=== PATIENT | female | born 1945 | race Caucasian/White ===

== ENCOUNTER 2017-04-15 12:00 | Inpatient (IN) | payer MEDICARE ==
[2017-04-15 12:43] VITALS: BMI 22.8
[2017-04-21] MEDS ORDERED: Sodium Chloride 0.9% 10 ML ONE (10:55)
[2017-04-21] MEDS ORDERED: Fentanyl 100 MCG/2 ML VIAL ONE ×2 (11:47→14:04)
[2017-04-21] MEDS ORDERED: ePHEDrine/0.9% NaCl/PF SYRINGE 50 mg/10 ml ONE (12:15)
[2017-04-21] MEDS ORDERED: Lidocaine 1% PF 5 ML VIAL ONE (12:15)
[2017-04-21] MEDS ORDERED: Ondansetron HCl/PF 4 MG/2 ML Vial ONE (12:15)
[2017-04-21] MEDS ORDERED: Dexamethasone 20 MG/5 ML VIAL ONE (12:15)
[2017-04-21] MEDS ORDERED: Glycopyrrolate 0.2 MG/ML 5 ML SYRINGE ONE (12:15)
[2017-04-21] MEDS ORDERED: Propofol 200 MG/20 ML VIAL ONE (12:15)
[2017-04-21] MEDS ORDERED: Promethazine HCl 25 MG/ML VIAL ONE (14:42)
[2017-04-21] MEDS ORDERED: Promethazine HCl 12.5 MG SUPP PR PRN (16:57)
[2017-04-21] MEDS ORDERED: Milk Of Magnesia 30 ML UDCUP PO PRN (16:57)
[2017-04-21] MEDS ORDERED: Promethazine HCl 25 MG/ML VIAL IM PRN (16:57)
[2017-04-21] MEDS ORDERED: tiZANidine HCl 4 MG TAB PO PRN (16:57)
[2017-04-21] MEDS ORDERED: Ondansetron HCl/PF 4 MG/2 ML Vial IM PRN (16:57)
[2017-04-21] MEDS ORDERED: diphenhydrAMINE HCl 25 MG CAP PO PRN (16:57)
[2017-04-21] MEDS ORDERED: diphenhydrAMINE HCl 50 MG/ML 1 ML VIAL IVP PRN (16:57)
[2017-04-21] MEDS ORDERED: Mag-Al 1200 mg/1200 mg/30 ML UDCUP PO PRN (16:57)
[2017-04-21] MEDS ORDERED: Zolpidem Tartrate 5 MG TAB PO PRN (16:57)
[2017-04-21] MEDS ORDERED: Morphine Sulfate 2 MG/ML SYRINGE SLOW IVP PRN (16:57)
[2017-04-21] MEDS ORDERED: Polyethylene Glycol 3350 17 GM Packet PO PRN (17:01)
[2017-04-21] MEDS ORDERED: traMADol HCl 50 MG TAB PO PRN (17:02)
[2017-04-21] MEDS: Sodium Chloride 0.9% 1,000 ML IV SCH (17:35)
[2017-04-21] MEDS: HYDROcodone/Acetaminophen 10/325 mg Tablet PO PRN (17:37)
[2017-04-21] MEDS: Ketorolac Tromethamine 30 MG/ML VIAL IVP SCH (17:37)
--- NOTE | 2017-04-21 19:12 | OP ---
DATE OF PROCEDURE: 04/21/2017 SURGEON: Andrew Forrester M.D. PROCESSING REP: Delfin Orourke PA-C PROCEDURE: L3-4 and L4-L5 laminectomy, facetectomy, foraminotomy, interbody arthrodesis, local mors elized autograft, demineralized bone matrix, posterior lateral arthrodesis and pedicle screw instrum entation, L3-L5. PROCEDURE IN DETAIL: The patient was brought into the operating room and intubated. She was rolled in the prone position on gel-filled chest rolls. An incision was made exposing the L3 through L5 b ilaterally and our level was confirmed by x-ray. We performed a right L4-L5 and right L3-L4 laminec mahesh, facetectomy, and foraminotomy, completely decompressing the right L3 and right L4 nerve roots in the neural foramina and the lateral recesses of right L3-4 and right L4-5. Next, the disk space was explored and debrided and the bony endplates decorticated for the purpose of arthrodesis. I did not elect to place an interbody devices. There was a very narrow corridor in this foramina. Next, pedicle screws were placed at right L3, right L4 and right L5 using lateral fluoroscopic guidance a nd secured by rods, connected by nuts, which were final tightened. The wound was then extensively i rrigated, immaculate hemostasis was secured. A combination of demineralized bone matrix and local m orselized autograft was laid over the left laminar and posterolateral surfaces for the purpose of ar throdesis. Vancomycin powder was applied and the wound was closed in anatomic layers.
[2017-04-21] MEDS: Carvedilol 25 MG TAB PO SCH (20:44)
[2017-04-21] MEDS: Methocarbamol 500 MG TAB PO SCH (20:45)
[2017-04-21] MEDS: Temazepam 15 MG CAP PO SCH (20:46)
[2017-04-22] MEDS: Ketorolac Tromethamine 30 MG/ML VIAL IVP SCH ×5 (00:16→23:43)
[2017-04-22] MEDS: Levothyroxine Sodium 112 MCG TAB PO SCH (05:23)
[2017-04-22] MEDS: HYDROcodone/Acetaminophen 10/325 mg Tablet PO PRN ×4 (05:28→20:47)
[2017-04-22] MEDS: Sodium Chloride 0.9% 1,000 ML IV SCH ×2 (06:38→20:07)
[2017-04-22] MEDS: Carvedilol 25 MG TAB PO SCH ×2 (08:17→20:46)
[2017-04-22] MEDS: Methocarbamol 500 MG TAB PO SCH (20:45)
[2017-04-22] MEDS: Temazepam 15 MG CAP PO SCH (20:46)
[2017-04-23] MEDS: HYDROcodone/Acetaminophen 10/325 mg Tablet PO PRN ×2 (02:33→08:01)
[2017-04-23] MEDS: Levothyroxine Sodium 112 MCG TAB PO SCH (05:37)
[2017-04-23] MEDS: Ketorolac Tromethamine 30 MG/ML VIAL IVP SCH (05:39)
[2017-04-23] MEDS: Carvedilol 25 MG TAB PO SCH (09:05)
[2017-04-23 10:43] VITALS: BP 120/62; TEMP 98.2
== END 2017-04-23 10:17 | disposition home or self-care (01) | DRG 460 ==
LOC: SURG A 04-21 10:11
PROVIDERS: ADMIT Neurological Surgery; ATTEND Neurological Surgery
PROC: 0SG1071 Fusion of 2 or more Lumbar Vertebral Joints with Autologous Tissue Substitute, Posterior Approach, Posterior Column, Open Approach (ICD-10-PCS; principal; 2017-04-21)
PROC: 01NB0ZZ Release Lumbar Nerve, Open Approach (ICD-10-PCS; 2017-04-21)
DX: M48.06 Spinal stenosis, lumbar region (principal); M51.16 Intervertebral disc disorders with radiculopathy, lumbar region; M21.371 Foot drop, right foot; Z88.5 Allergy status to narcotic agent; Z85.048 Personal history of other malignant neoplasm of rectum, rectosigmoid junction, and anus; M43.16 Spondylolisthesis, lumbar region; Z90.722 Acquired absence of ovaries, bilateral; Z90.710 Acquired absence of both cervix and uterus; Z66 Do not resuscitate
CPT/HCPCS: 76001; A4216; C1713; C1768; G8978-GP-CJ; G8979-GP-CI; J1100; J1170; J1885; J2001; J2405; J2550; J2704; J3010; J3370; J3490

== ENCOUNTER 2017-05-06 10:52 | Outpatient (CLI) | payer MEDICARE ==
--- NOTE | 2017-05-06 12:20 | RAD ---
TWO VIEWS LUMBAR SPINE: INDICATION: History of surgery 1 week ago. FINDINGS: There pedicle screws seen on the right at L3 through L5 with interconnecting rods. Instrumentation projects in the expected position. There is grade I anterolisthesis of L3 and L4 and L4 and L5 and appears stable to a comparison MRI dated 03/16/17. Moderate multilevel spondylosis is again noted. There is diffuse osteopenia. IMPRESSION: Postoperative lumbar spine. POS: [facility]
== END 2017-05-06 10:53 | disposition home or self-care (01) ==
LOC: TBSIIMAG 10:52
PROVIDERS: ATTEND Physician Assistant
DX: M54.16 Radiculopathy, lumbar region (principal); Z98.1 Arthrodesis status
CPT/HCPCS: 72100

== ENCOUNTER 2017-06-24 15:07 | Outpatient (CLI) | payer MEDICARE ==
--- NOTE | 2017-06-24 15:34 | RAD ---
LUMBAR SPINE TWO VIEWS: History: Spondylolisthesis. Comparison: 05-06-17 FINDINGS: Pedicle screws are seen on the right transfixing L3, L4, and L5. There is a grade I spondylolisthesis at L4-5. There is loss of disc space at L3-4, L4-5, and L5-S1. Alignment of the lumbar spine is stable when compared to 05-06-17. IMPRESSION: Stable finding. POS: [facility]
== END 2017-06-24 15:08 | disposition home or self-care (01) ==
LOC: TBSIIMAG 15:07
PROVIDERS: ATTEND Neurological Surgery
DX: Q76.2 Congenital spondylolisthesis (principal); R29.890 Loss of height
CPT/HCPCS: 72100

== ENCOUNTER 2017-09-22 12:45 | Outpatient (CLI) | payer MEDICARE ==
--- NOTE | 2017-09-22 14:58 | RAD ---
TWO VIEWS LUMBAR SPINE: Date: 09-22-17 History: Lumbar disc degenerative changes. Follow up post-surgical change. Comparison: 06-24-17 FINDINGS: Again noted are post-surgical changes related to posterior effusion of the lower lumbar spine with un ilateral right sided pedicular screws in the L3, L4, and L5 vertebral bodies transfixed by posterior maru. There is a stable grade I anterolisthesis of L3 on L4 and L4 on L5. No hardware complication is seen. Vertebral body heights are within normal limits. There is narrowing of the L5-S1 intervertebral disc space which is stable. There is stable slight retrolisthesis of L2 on L3. No other interval gabi nge. IMPRESSION: 1. Stable views of the lumbar spine with post-surgical changes related to posterior fusion of the L3 through L4 levels. 2. Stable slight retrolisthesis of L2 on L3. POS: [facility]
== END 2017-09-22 12:46 | disposition home or self-care (01) ==
LOC: TBSIIMAG 12:45
PROVIDERS: ATTEND Physician Assistant
DX: M51.36 Other intervertebral disc degeneration, lumbar region (principal); M43.16 Spondylolisthesis, lumbar region; Z98.890 Other specified postprocedural states; Z98.1 Arthrodesis status
CPT/HCPCS: 72100

== ENCOUNTER 2018-07-08 10:45 | Outpatient (CLI) | payer MEDICARE ==
--- NOTE | 2018-07-08 12:35 | BD ---
DEXA BONE DENSITOMETRY: (Dual energy X-ray Absorptiometry) 07/08/2018 HISTORY: A 73-year-old white, postmenopausal female for age-related osteoporosis baseline screening examinatio n. Height 66.5 in. Weight 165 lbs. Age of menopause 35 years. COMPARISON: None available. TECHNIQUE: Because of metallic hardware in the lumbar spine, the lumbar spine was not evaluated. Instead, the b ilateral hips were evaluated. FINDINGS: The bone mineral density (BMD) is given in grams per square centimeter (g/cm2): BMD (g/cm2) T-score Z-score RIGHT HIP: Femoral neck: 0.567 -2.5 -0.6 Total: 0.787 -1.3 0.4 LEFT HIP: Femoral neck: 0.586 -2.4 -0.4 Total: 0.789 -1.3 0.4 IMPRESSION: The right hip is in the mildly osteoporotic range, and the left hip is in the severely osteopenic ran ge, very similar to each other and within the range of error. Fracture risk is significantly increas ed. KIMI Ames POS: [facility]
== END 2018-07-08 10:46 | disposition home or self-care (01) ==
LOC: BICMAMMO 10:45
PROVIDERS: ATTEND Family Medicine
DX: E28.39 Other primary ovarian failure (principal); M81.0 Age-related osteoporosis without current pathological fracture; M85.851 Other specified disorders of bone density and structure, right thigh; M85.852 Other specified disorders of bone density and structure, left thigh
CPT/HCPCS: 77080

== ENCOUNTER 2019-01-20 10:21 | Outpatient (CLI) | payer MEDICARE ==
--- NOTE | 2019-01-20 11:48 | MMO ---
Bilateral MAMMO Bilat Screen [facility]. CLINICAL HISTORY: Patient is 74 years old and is seen for screening. The patient has no family history of breast cancer. The patient has a history of other cancer in April,. VIEWS: The views performed were: bilateral craniocaudal with tomosynthesis and bilateral mediolateral oblique with tomosynthesis. FILMS COMPARED: The present examination has been compared to prior imaging studies performed at [facility] on 01/28/2011, 04/06/2013 and 10/21/2016, and at [facility] on 08/15/2015. MAMMOGRAM FINDINGS: There are scattered fibroglandular densities. There are no suspicious masses, suspicious calcifications, or new areas of architectural distortion. IMPRESSION: THERE IS NO MAMMOGRAPHIC EVIDENCE OF MALIGNANCY. A ROUTINE FOLLOW-UP MAMMOGRAM IN 1 YEAR IS RECOMMENDED. THE RESULTS OF THIS EXAM WERE SENT TO THE PATIENT. ACR BI-RADS Category 1 - Negative MAMMOGRAPHY NOTE: 1. A negative mammogram report should not delay a biopsy if a dominant of clinically suspicious mass is present. 2. Approximately 10% to 15% of breast cancers are not detected by mammography. 3. Adenosis and dense breasts may obscure an underlying neoplasm.
== END 2019-01-20 10:22 | disposition home or self-care (01) ==
LOC: BICMAMMO 10:21
PROVIDERS: ATTEND Family Medicine
DX: Z12.31 Encounter for screening mammogram for malignant neoplasm of breast (principal); Z85.89 Personal history of malignant neoplasm of other organs and systems
CPT/HCPCS: 77063; 77067

== ENCOUNTER 2019-08-05 09:45 | Outpatient (CLI) | payer MEDICARE ==
--- NOTE | 2019-08-05 11:25 | BD ---
BONE DENSITOMETRY USING DEXA: HISTORY: A 74-year-old female for screening for postmenopausal osteoporosis. RIGHT HIP BMD (g/cm2) T-SCORE Z-SCORE NECK 0.611 -2.1 -0.1 TOTAL 0.775 -1.4 0.3 LEFT HIP NECK 0.687 -2.4 -0.4 TOTAL 0.730 -1.7 0.0 There has been interval reduction of 1.6% in the BMD of the right proximal femur and a reduction of 7 .5% in the BMD of the left proximal femur since 07/08/2018. The 10 year fracture risk for a major osteoporotic fracture is 23% and for a hip fracture is 6%. IMPRESSION: Osteopenia. POS: [facility]
== END 2019-08-05 09:46 | disposition home or self-care (01) ==
LOC: BICMAMMO 09:45
PROVIDERS: ATTEND Internal Medicine Hematology & Oncology
DX: Z13.820 Encounter for screening for osteoporosis (principal); C21.1 Malignant neoplasm of anal canal; M85.851 Other specified disorders of bone density and structure, right thigh; M85.852 Other specified disorders of bone density and structure, left thigh
CPT/HCPCS: 77080

== ENCOUNTER 2021-07-03 06:50 | Day surgery (SDC) | payer MEDICARE ==
[2021-07-02 11:18] VITALS: BMI 27.4
[~2021-07-03 06:50] MED LIST: FLU VACC QS2021-22(65YR UP)/PF 240 MCG/0.7 ML SYRINGE IM ONE
== END 2021-07-03 09:20 | disposition home or self-care (01) ==
LOC: RAD 06:50
PROVIDERS: ATTEND Neurological Surgery
PROC: B02B1ZZ Computerized Tomography (CT Scan) of Spinal Cord using Low Osmolar Contrast (ICD-10-PCS; principal; 2021-07-03)
DX: M54.16 Radiculopathy, lumbar region (principal); M43.16 Spondylolisthesis, lumbar region; M48.061 Spinal stenosis, lumbar region without neurogenic claudication; N28.9 Disorder of kidney and ureter, unspecified; Z79.899 Other long term (current) drug therapy; Z88.5 Allergy status to narcotic agent; Z98.1 Arthrodesis status
CPT/HCPCS: 62304; 72132

== ENCOUNTER 2021-12-17 08:22 | Outpatient (CLI) | payer MEDICARE | END 2021-12-17 08:23 | disposition home or self-care (01) | LOC: BICCT 08:22 | PROVIDERS: ATTEND Internal Medicine Gastroenterology | DX: R10.12 Left upper quadrant pain (principal); R91.1 Solitary pulmonary nodule; K21.9 Gastro-esophageal reflux disease without esophagitis; N28.1 Cyst of kidney, acquired; Z85.048 Personal history of other malignant neoplasm of rectum, rectosigmoid junction, and anus | CPT/HCPCS: 74177; 82565 ==

== ENCOUNTER 2021-12-25 12:39 | Outpatient (CLI) | payer MEDICARE | END 2021-12-25 12:40 | disposition home or self-care (01) | LOC: BICCT 12:39 | PROVIDERS: ATTEND Internal Medicine Gastroenterology | DX: R91.8 Other nonspecific abnormal finding of lung field (principal) | CPT/HCPCS: 71260 ==

== ENCOUNTER 2022-01-03 09:30 | Outpatient (CLI) | payer MEDICARE | END 2022-01-03 09:31 | disposition home or self-care (01) | LOC: PET 09:30 | PROVIDERS: ATTEND Internal Medicine Critical Care Medicine | DX: R91.8 Other nonspecific abnormal finding of lung field (principal); R59.0 Localized enlarged lymph nodes | CPT/HCPCS: 78815; A9552 ==

== ENCOUNTER 2022-01-16 11:58 | Outpatient (CLI) | payer MEDICARE | END 2022-01-16 11:59 | disposition home or self-care (01) | LOC: LABBT 11:58 | PROVIDERS: ATTEND Family Medicine | DX: R91.8 Other nonspecific abnormal finding of lung field (principal); Z20.822 Contact with and (suspected) exposure to COVID-19 | CPT/HCPCS: U0003; U0005 ==

== ENCOUNTER 2022-01-21 08:42 | Day surgery (SDC) | payer MEDICARE ==
[2022-01-20 12:23] VITALS: BMI 26.6
[2022-01-21] MEDS ORDERED: Lidocaine 1% MPF 2 ML VIAL ONE (09:21)
[2022-01-21] MEDS ORDERED: fentaNYL Citrate/PF 100 MCG/2 ML SYRINGE ONE (11:05)
[2022-01-21] MEDS ORDERED: PROPOFOL 200 MG/20 ML VIAL ONE (11:28)
[2022-01-21] MEDS ORDERED: Ondansetron PF 4 MG/2 ML Vial ONE (11:28)
[2022-01-21] MEDS ORDERED: Lidocaine 1% PF 5 ML VIAL ONE (11:28)
[2022-01-21] MEDS ORDERED: Dexamethasone 20 MG/5 ML VIAL ONE (11:28)
[2022-01-21] MEDS ORDERED: Succinylcholine 200 MG/10 ml SYRINGE FS ONE (11:28)
== END 2022-01-21 13:15 | disposition home or self-care (01) ==
LOC: SDC 08:42
PROVIDERS: ATTEND Internal Medicine Critical Care Medicine
PROC: 0BB88ZX Excision of Left Upper Lobe Bronchus, Via Natural or Artificial Opening Endoscopic, Diagnostic (ICD-10-PCS; principal; 2022-01-21)
PROC: 0BB48ZX Excision of Right Upper Lobe Bronchus, Via Natural or Artificial Opening Endoscopic, Diagnostic (ICD-10-PCS; 2022-01-21)
PROC: 0BDG8ZX Extraction of Left Upper Lung Lobe, Via Natural or Artificial Opening Endoscopic, Diagnostic (ICD-10-PCS; 2022-01-21)
PROC: 0BDC8ZX Extraction of Right Upper Lung Lobe, Via Natural or Artificial Opening Endoscopic, Diagnostic (ICD-10-PCS; 2022-01-21)
DX: C34.11 Malignant neoplasm of upper lobe, right bronchus or lung (principal); Z85.048 Personal history of other malignant neoplasm of rectum, rectosigmoid junction, and anus; Z79.890 Hormone replacement therapy; Z79.899 Other long term (current) drug therapy; Z88.5 Allergy status to narcotic agent; Z88.8 Allergy status to other drugs, medicaments and biological substances; Z98.1 Arthrodesis status; Z98.84 Bariatric surgery status
CPT/HCPCS: 87070; 87102; 87116; 87205; 87206; 88112; 88305; 88341; 88342; 88360; J1100; J2405; J2704; J7620

== ENCOUNTER 2022-02-05 11:01 | Outpatient (CLI) | payer MEDICARE ==
[2022-02-05 12:46] LABS: Hemoglobin 13.3 g/dL (12.0-15.5); Mean Corpuscular HGB CONC 33.1 g/dL (32.0-36.0); Mean Corpuscular Volume 87.6 fl (81.6-98.3); Mean Platelet Volume 10.8 fl (7.4-10.4); Platelet Count 136 10x3/uL (150-450); RBC Distribution Width 14.5 % (11.5-14.5); Red Blood Cell (RBC) Count 4.59 10x6/uL (3.90-5.03); White Blood Cell (WBC) Count 5.4 10x3/uL (3.5-10.5)
[2022-02-05 12:50] LABS: MDiff Complete? YES
[2022-02-05 13:14] LABS: Anion Gap 14 mmol/L (10-20); BUN (Urea Nitrogen) 25 mg/dL (9.8-20.1); Calc. Creatinine Clearance 0 mL/min (70-130); Calcium 9.1 mg/dL (7.8-10.44); Carbon Dioxide 26 mmol/L (23-31); Chloride 102 mmol/L (98-107); Estimated GFR 47; Glucose 143 mg/dL (83-110); Potassium 4.4 mmol/L (3.5-5.1); Sodium 138 mmol/L (136-145)
[2022-02-05 13:30] LABS: Band 3 % (5-11); Lymphocytes 13 % (21-51); Monocytes 3 % (0-10); Neutrophil 81 % (42-75)
[2022-02-05 13:37] LABS: Platelet Morphology Comment Appears Adequate
[2022-02-05 13:38] LABS: RBC Morphology Normal
== END 2022-02-05 11:02 | disposition home or self-care (01) ==
LOC: LABBT 11:01
PROVIDERS: ATTEND Specialist
DX: Z01.818 Encounter for other preprocedural examination (principal); C21.0 Malignant neoplasm of anus, unspecified; Z20.822 Contact with and (suspected) exposure to COVID-19
CPT/HCPCS: 80048; 85025; 87811; 93005; 93010

== ENCOUNTER 2022-02-11 06:29 | Day surgery (SDC) | payer MEDICARE ==
[2022-02-07 10:34] VITALS: BMI 26.1
[~2022-02-11 06:29] MED LIST changes: +Acetaminophen 500 MG TAB ONE; -FLU VACC QS2021-22(65YR UP)/PF 240 MCG/0.7 ML SYRINGE IM ONE
[2022-02-11] MEDS ORDERED: Lidocaine 1% w/Epinephrine 1:100K 20 ML VIAL ONE (06:52)
[2022-02-11] MEDS ORDERED: Bupivacaine 0.25% HCL 30 ML VIAL ONE (06:52)
[2022-02-11] MEDS ORDERED: fentaNYL Citrate/PF 100 MCG/2 ML SYRINGE ONE (07:05)
[2022-02-11] MEDS ORDERED: Propofol 500 MG/50 ML VIAL ONE (07:05)
[2022-02-11] MEDS ORDERED: CEFAZOLIN 2 GM VIAL ONE (07:24)
[2022-02-11] MEDS ORDERED: Sodium Chloride 0.9% 100 ML ONE (07:24)
[2022-02-11] MEDS ORDERED: PROPOFOL 200 MG/20 ML VIAL ONE (07:37)
== END 2022-02-11 08:55 | disposition home or self-care (01) ==
LOC: SDC 06:29
PROVIDERS: ATTEND Specialist
PROC: 0JH60WZ Insertion of Totally Implantable Vascular Access Device into Chest Subcutaneous Tissue and Fascia, Open Approach (ICD-10-PCS; principal; 2022-02-11)
PROC: 02HV33Z Insertion of Infusion Device into Superior Vena Cava, Percutaneous Approach (ICD-10-PCS; 2022-02-11)
DX: C21.0 Malignant neoplasm of anus, unspecified (principal); C78.00 Secondary malignant neoplasm of unspecified lung; C78.1 Secondary malignant neoplasm of mediastinum; N18.31 Chronic kidney disease, stage 3a; Z79.83 Long term (current) use of bisphosphonates; Z79.890 Hormone replacement therapy; Z79.899 Other long term (current) drug therapy; Z88.5 Allergy status to narcotic agent; Z88.8 Allergy status to other drugs, medicaments and biological substances
CPT/HCPCS: 36561; 71045; C1788; J0690; J1642; J2704; J3490; S0020

== ENCOUNTER 2022-04-01 08:00 | Outpatient (CLI) | payer MEDICARE | END 2022-04-01 08:01 | disposition home or self-care (01) | LOC: PET 08:00 | PROVIDERS: ATTEND Internal Medicine Hematology & Oncology | DX: C21.1 Malignant neoplasm of anal canal (principal); C78.00 Secondary malignant neoplasm of unspecified lung | CPT/HCPCS: 78815; A9552 ==

== ENCOUNTER → 2022-06-06 | Outpatient (CLI) | payer MEDICARE | LOC: PET 08:00 | PROVIDERS: ATTEND Internal Medicine Hematology & Oncology | DX: C21.1 Malignant neoplasm of anal canal (principal); C78.00 Secondary malignant neoplasm of unspecified lung; C78.1 Secondary malignant neoplasm of mediastinum; M81.8 Other osteoporosis without current pathological fracture; D50.8 Other iron deficiency anemias | CPT/HCPCS: 78815; A9552 ==

== ENCOUNTER 2022-06-16 11:24 | Outpatient (CLI) | payer MEDICARE | END 2022-06-16 11:25 | disposition home or self-care (01) | LOC: SCSMRI 11:24 | PROVIDERS: ATTEND Internal Medicine Hematology & Oncology | DX: M48.04 Spinal stenosis, thoracic region (principal); C21.1 Malignant neoplasm of anal canal | CPT/HCPCS: 72158; 82565 ==

== ENCOUNTER 2022-08-04 10:55 | Outpatient (CLI) | payer MEDICARE ==
[2022-08-04 12:50] LABS: Hemoglobin 12.3 g/dL (12.0-15.5); Mean Corpuscular HGB CONC 32.8 g/dL (32.0-36.0); Mean Corpuscular Hemoglobin 31.2 pg (27.0-33.0); Mean Corpuscular Volume 95.2 fl (81.6-98.3); Mean Platelet Volume 9.6 fl (7.4-10.4); Platelet Count 199 10x3/uL (150-450); RBC Distribution Width 13.1 % (11.5-14.5); Red Blood Cell (RBC) Count 3.94 10x6/uL (3.90-5.03); White Blood Cell (WBC) Count 3.9 10x3/uL (3.5-10.5)
[2022-08-04 13:10] LABS: Anion Gap 12 mmol/L (10-20); BUN (Urea Nitrogen) 18 mg/dL (9.8-20.1); Calc. Creatinine Clearance 0 mL/min (70-130); Calcium 8.3 mg/dL (7.8-10.44); Carbon Dioxide 23 mmol/L (23-31); Chloride 110 mmol/L (98-107); Estimated GFR 61; Glucose 83 mg/dL (83-110); Potassium 5.1 mmol/L (3.5-5.1); Sodium 140 mmol/L (136-145)
== END 2022-08-04 10:56 | disposition home or self-care (01) ==
LOC: LABBT 10:55
PROVIDERS: ATTEND Neurological Surgery
DX: Z01.818 Encounter for other preprocedural examination (principal); M48.062 Spinal stenosis, lumbar region with neurogenic claudication
CPT/HCPCS: 80048; 85027; 93005; 93010

== ENCOUNTER 2022-08-04 11:00 | Inpatient (IN) | payer MEDICARE ==
[2022-08-08 12:22] VITALS: BMI 24.2
[2022-08-11] MEDS ORDERED: Vancomycin 1 GM VIAL ONE (06:43)
[2022-08-11] MEDS ORDERED: Lidocaine 2% 6 ML SYR ONE (06:48)
[2022-08-11] MEDS ORDERED: fentaNYL PF 100 MCG/2 ML SYRINGE ONE (06:48)
[2022-08-11] MEDS ORDERED: traMADol HCl 50 MG TAB PO PRN ×2 (06:53)
[2022-08-11] MEDS ORDERED: diphenhydrAMINE 25 MG CAP PO PRN (06:53)
[2022-08-11] MEDS ORDERED: Promethazine 25 MG TAB PO PRN (06:53)
[2022-08-11] MEDS ORDERED: Ondansetron PF 4 MG/2 ML Vial IVP PRN (06:53)
[2022-08-11] MEDS ORDERED: Mag-Al 1200 mg/1200 mg/30 ML UDCUP PO PRN (06:53)
[2022-08-11] MEDS ORDERED: Milk Of Magnesia 30 ML UDCUP PO PRN (06:53)
[2022-08-11] MEDS ORDERED: Morphine 2 MG/ML VIAL SLOW IVP PRN (06:53)
[2022-08-11] MEDS ORDERED: Polyethylene Glycol 3350 17 GM Packet PO PRN (06:59)
[2022-08-11] MEDS ORDERED: CEFAZOLIN 2 GM VIAL ONE (07:11)
[2022-08-11] MEDS ORDERED: Sodium Chloride 0.9% 100 ML ONE (07:11)
[2022-08-11 07:15] LABS: SARS-CoV-2 NAA Rapid Test Not Detected (NotDetected)
[2022-08-11] MEDS ORDERED: Glycopyrrolate 0.2 MG/ML 5 ML SYRINGE ONE (07:24)
[2022-08-11] MEDS ORDERED: Ketorolac Tromethamine 30 MG/ML VIAL ONE (07:24)
[2022-08-11] MEDS ORDERED: Dexamethasone 20 MG/5 ML VIAL ONE (07:24)
[2022-08-11] MEDS ORDERED: PHENYLEPHRINE-NS 100 MCG/ML 10 ML SYRINGE ONE (07:24)
[2022-08-11] MEDS ORDERED: ePHEDrine 50 MG/ML VIAL ONE ×2 (07:24)
[2022-08-11] MEDS ORDERED: Ondansetron PF 4 MG/2 ML Vial ONE (07:24)
[2022-08-11] MEDS ORDERED: Rocuronium Bromide 10 MG/ML (10ML VIAL) ONE (07:24)
[2022-08-11] MEDS ORDERED: PROPOFOL 200 MG/20 ML VIAL ONE (07:24)
[2022-08-11] MEDS ORDERED: ePHEDrine Sulfate 50 MG/10 ML VIAL ONE (07:43)
[2022-08-11] MEDS ORDERED: SUGAMMADEX SODIUM 200 MG/2 ML VIAL ONE (08:32)
[2022-08-11] MEDS ORDERED: Ondansetron HCl/PF 4 MG/2 ML Vial IVP PRN (08:50)
[2022-08-11] MEDS ORDERED: Promethazine HCl 25 MG/ML VIAL IM PRN (08:50)
[2022-08-11] MEDS ORDERED: Fentanyl 100 MCG/2 ML VIAL ONE (08:57)
[2022-08-11] MEDS ORDERED: HYDROmorphone 0.5 MG/0.5 ML SYRINGE ONE ×2 (09:35→10:06)
[2022-08-11] MEDS: HYDROcodone/Acetaminophen 10/325 mg Tablet PO PRN ×2 (12:12→18:14)
[2022-08-11] MEDS: Carvedilol 6.25 MG TAB PO SCH ×2 (12:13→18:13)
[2022-08-11] MEDS: Gabapentin 100 MG CAP PO SCH ×2 (12:13→20:00)
[2022-08-11] MEDS: CEFAZOLIN 2 GM in Sodium Chloride 0.9% 100 ML IVPB SCH ×2 (12:13→22:18)
[2022-08-11] MEDS: Morphine 4 MG/ML VIAL SLOW IVP PRN ×2 (15:15→22:41)
[2022-08-11] MEDS: Cyclobenzaprine 10 MG TAB PO PRN ×2 (15:16→22:15)
[2022-08-11] MEDS: Temazepam 15 MG CAP PO PRN (22:16)
[2022-08-12] MEDS: Levothyroxine 150 MCG TAB PO SCH (05:14)
[2022-08-12] MEDS: CEFAZOLIN 2 GM in Sodium Chloride 0.9% 100 ML IVPB SCH ×3 (05:14→21:10)
[2022-08-12] MEDS: HYDROcodone/Acetaminophen 10/325 mg Tablet PO PRN ×3 (08:42→21:09)
[2022-08-12] MEDS: Carvedilol 6.25 MG TAB PO SCH ×2 (08:42→16:18)
[2022-08-12] MEDS: Gabapentin 100 MG CAP PO SCH ×3 (08:43→21:08)
[2022-08-12] MEDS: Cyclobenzaprine 10 MG TAB PO PRN (16:19)
[2022-08-12] MEDS ORDERED: Gabapentin 100 MG CAP PO SCH (21:00)
[2022-08-12] MEDS ORDERED: Non-Formulary Item 1 EACH (Carvedilol [Carvedilol] 12.5 MG Tablet) PO SCH (21:00)
[2022-08-12] MEDS: Temazepam 15 MG CAP PO PRN (21:08)
[2022-08-13] MEDS: CEFAZOLIN 2 GM in Sodium Chloride 0.9% 100 ML IVPB SCH ×2 (05:14→13:17)
[2022-08-13] MEDS: Levothyroxine 150 MCG TAB PO SCH (05:14)
[2022-08-13] MEDS: Carvedilol 6.25 MG TAB PO SCH (08:46)
[2022-08-13] MEDS: Gabapentin 100 MG CAP PO SCH (08:47)
[2022-08-13] MEDS ORDERED: Folic Acid 1 MG TAB PO SCH (09:00)
[2022-08-13] MEDS ORDERED: Cholecalciferol 1,000 UNITS (25 MCG) TAB PO SCH (09:00)
[2022-08-13] MEDS ORDERED: Cyanocobalamin (Vitamin B-12) 1,000 MCG TAB PO SCH (09:00)
[2022-08-13] MEDS: Cyclobenzaprine 10 MG TAB PO PRN (11:52)
[2022-08-13 14:47] VITALS: BP 124/73; TEMP 97.5
[2022-08-19] MEDS ORDERED: Alendronate Sodium 70 mg Tablet PO SCH (09:00)
== END 2022-08-13 15:39 | disposition home or self-care (01) | DRG 460 ==
LOC: SURG A 08-11 05:36 → T4-B 08-11 11:51
PROVIDERS: ADMIT Neurological Surgery; ATTEND Neurological Surgery
PROC: 0SG1071 Fusion of 2 or more Lumbar Vertebral Joints with Autologous Tissue Substitute, Posterior Approach, Posterior Column, Open Approach (ICD-10-PCS; principal; 2022-08-11)
PROC: 0SP00AZ Removal of Interbody Fusion Device from Lumbar Vertebral Joint, Open Approach (ICD-10-PCS; 2022-08-11)
DX: M48.062 Spinal stenosis, lumbar region with neurogenic claudication (principal); Z20.822 Contact with and (suspected) exposure to COVID-19; M21.372 Foot drop, left foot; E03.9 Hypothyroidism, unspecified; K21.9 Gastro-esophageal reflux disease without esophagitis; I73.9 Peripheral vascular disease, unspecified; I10 Essential (primary) hypertension; Z79.899 Other long term (current) drug therapy; Z79.890 Hormone replacement therapy
CPT/HCPCS: C1713; C1768; C1776; J1100; J1170; J1642; J1885; J2270; J2405; J2704; J3010; J3370; J3490; U0002

== ENCOUNTER 2022-08-29 08:45 | Outpatient (CLI) | payer MEDICARE | END 2022-08-29 08:46 | disposition home or self-care (01) | LOC: PET 08:45 | PROVIDERS: ATTEND Internal Medicine Hematology & Oncology | DX: C34.90 Malignant neoplasm of unspecified part of unspecified bronchus or lung (principal); C78.1 Secondary malignant neoplasm of mediastinum | CPT/HCPCS: 78815; A9552 ==

== ENCOUNTER 2022-09-02 12:27 | Outpatient (CLI) | payer MEDICARE | END 2022-09-02 12:28 | disposition home or self-care (01) | LOC: TBSIIMAG 12:27 | PROVIDERS: ATTEND Neurological Surgery | DX: M48.062 Spinal stenosis, lumbar region with neurogenic claudication (principal); M47.816 Spondylosis without myelopathy or radiculopathy, lumbar region; Z98.890 Other specified postprocedural states; C21.1 Malignant neoplasm of anal canal; M81.8 Other osteoporosis without current pathological fracture; D50.8 Other iron deficiency anemias; R30.0 Dysuria | CPT/HCPCS: 72100; 81001; 87086 ==

== ENCOUNTER 2022-11-12 13:24 | Outpatient (CLI) | payer MEDICARE | END 2022-11-12 13:25 | disposition home or self-care (01) | LOC: TBSIIMAG 13:24 | PROVIDERS: ATTEND Neurological Surgery | DX: M48.062 Spinal stenosis, lumbar region with neurogenic claudication (principal); M47.816 Spondylosis without myelopathy or radiculopathy, lumbar region; Z98.890 Other specified postprocedural states | CPT/HCPCS: 72100 ==

== ENCOUNTER 2022-11-14 08:36 | Outpatient (CLI) | payer MEDICARE ==
[2022-11-14] MEDS ORDERED: Iopamidol 370 76% 100 ML VIAL ONE (09:58)
== END 2022-11-14 08:37 | disposition home or self-care (01) ==
LOC: BICCT 08:36
PROVIDERS: ATTEND Internal Medicine Hematology & Oncology
DX: C21.1 Malignant neoplasm of anal canal (principal); J98.11 Atelectasis
CPT/HCPCS: 71260; 74177; 82565; Q9967

== ENCOUNTER 2023-06-10 10:13 | Outpatient (CLI) | payer MEDICARE ==
[2023-06-10] MEDS ORDERED: Iopamidol 370 76% 100 ML VIAL ONE (10:42)
== END 2023-06-10 10:14 | disposition home or self-care (01) ==
LOC: BICCT 10:13
PROVIDERS: ATTEND Internal Medicine Hematology & Oncology
DX: C21.1 Malignant neoplasm of anal canal (principal); N28.1 Cyst of kidney, acquired; K22.2 Esophageal obstruction; K22.89 Other specified disease of esophagus; M47.816 Spondylosis without myelopathy or radiculopathy, lumbar region
CPT/HCPCS: 71260; 74177; 82565

== ENCOUNTER 2023-12-25 11:59 | Outpatient (CLI) | payer MEDICARE | END 2023-12-25 12:00 | disposition home or self-care (01) | LOC: BICMAMMO 11:59 | PROVIDERS: ATTEND Internal Medicine Hematology & Oncology | DX: M81.8 Other osteoporosis without current pathological fracture (principal); C21.1 Malignant neoplasm of anal canal; D50.8 Other iron deficiency anemias; R30.0 Dysuria; M85.851 Other specified disorders of bone density and structure, right thigh; M85.852 Other specified disorders of bone density and structure, left thigh | CPT/HCPCS: 77080 ==

== ENCOUNTER 2024-01-14 09:08 | Outpatient (CLI) | payer MEDICARE | END 2024-01-14 09:09 | disposition home or self-care (01) | LOC: RAD 09:08 | PROVIDERS: ATTEND Internal Medicine Critical Care Medicine | DX: R06.00 Dyspnea, unspecified (principal) | CPT/HCPCS: 71046 ==

== ENCOUNTER 2024-02-24 08:00 | Outpatient (CLI) | payer MEDICARE | END 2024-02-24 08:01 | disposition home or self-care (01) | LOC: PET 08:00 | PROVIDERS: ATTEND Internal Medicine Hematology & Oncology | DX: C21.1 Malignant neoplasm of anal canal (principal); C78.00 Secondary malignant neoplasm of unspecified lung; R59.0 Localized enlarged lymph nodes; R91.8 Other nonspecific abnormal finding of lung field; R94.8 Abnormal results of function studies of other organs and systems; K31.89 Other diseases of stomach and duodenum | CPT/HCPCS: 78815; A9552 ==

== ENCOUNTER 2024-04-20 12:53 | Inpatient (IN) | payer MEDICARE ==
[~2024-04-20 12:53] MED LIST changes: -Acetaminophen 500 MG TAB ONE; +Iopamidol-370 76% 500 ML MDV (1 ML CHARGE) ONE
[2024-04-20] MEDS ORDERED: Ondansetron PF 4 MG/2 ML Vial ONE (14:38)
[2024-04-20 15:16] LABS: Hematocrit 29.9 % (36.0-47.0); Mean Corpuscular HGB CONC 33.4 g/dL (32.0-36.0); Mean Corpuscular Hemoglobin 29.1 pg (27.0-31.0); Mean Corpuscular Volume 86.9 fL (78.0-98.0); Platelet Count 21 10x3/uL (130-400); RBC Distribution Width 16.2 % (11.5-14.5); Red Blood Cell (RBC) Count 3.44 mill/uL (4.20-5.40)
[2024-04-20 15:35] LABS: ALT (SGPT) 10 U/L (8-55); AST (SGOT) 9 U/L (5-34); Albumin 1.7 g/dL (3.4-4.8); Alkaline Phosphatase 45 U/L (40-110); Anion Gap 13 mmol/L (10-20); BUN (Urea Nitrogen) 33 mg/dL (9.8-20.1); Bilirubin, Total 0.6 mg/dL (0.2-1.2); Calc. Creatinine Clearance 0 mL/min (70-130); Calcium 6.4 mg/dL (7.8-10.44); Carbon Dioxide 18 mmol/L (23-31); Chloride 109 mmol/L (98-107); Estimated GFR 47; Globulin 1.6 g/dL (2.4-3.5); Glucose 120 mg/dL (83-110); Lipase 4 U/L (8-78); Potassium 3.5 mmol/L (3.5-5.1); Protein, Total 3.3 g/dL (5.8-8.1); Sodium 136 mmol/L (136-145)
[2024-04-20 15:36] LABS: Troponin I 0.071 ng/mL (< 0.028)
[2024-04-20 15:45] LABS: Band 2 % (5-11); Eosinophils 1 % (0-10); Large Platelets 7.6 % (0-5); Lymphocytes 87 % (21-51); Macrocytosis SLIGHT = 6-15 cells HPF (0-5); Metamyelocyte 2 % (0-0); Monocytes 3 % (0-10); Myelocyte 1 % (0-0); Neutrophil 1 % (42-75); Nucleated RBC (Manual Ct) 36 % (0); Plasma Cells 3 % (0-0); Platelet Adequacy Comment Platelets Decreased; Polychromasia MODERATE = 3-4 cells HPF (0-2); Reactive Lymphocytes 2 % (0-10); Smudge Cells 20.2 %
[2024-04-20] MEDS ORDERED: Piperacillin/Tazobactam 3.375 GM VIAL ONE (16:37)
[2024-04-20] MEDS ORDERED: traMADol HCl 50 MG TAB PO PRN (17:21)
[2024-04-20] MEDS ORDERED: Ondansetron PF 4 MG/2 ML Vial IVP PRN (17:21)
[2024-04-20] MEDS ORDERED: Ondansetron ODT 4 MG TAB PO PRN (17:21)
[2024-04-20] MEDS ORDERED: NOREPINEPHRINE 8 MG/250 ML-D5W 250 ML ONE (18:09)
[2024-04-20 19:35] LABS: Thyroid Stimulating Hormone 3.8983 uIU/mL (0.35-4.94)
[2024-04-20 19:54] LABS: Bilirubin Negative (Negative); Blood, Urine 1+ (Negative); CAUTI Indications for Culture Immunosuppressed; Clarity Clear (Clear); Glucose, Urine (Dipstick) Normal (Negative); Ketone, Urine Negative (Negative); Leukocyte Negative Leu/uL (Negative); Nitrite Negative (Negative); Protein, Urine (Dipstick) 10 mg/dL (Neg-Trace); RBC/HPF 0-3 HPF (0-3); Specific Gravity, Urine 1.034 (1.002-1.036); Squamous Epithelial 0-3 HPF (0-3); Urobilinogen Normal mg/dL (Less than 2); WBC/HPF 0-3 HPF (0-3); pH, Urine 5.5 (5.0-9.0)
[2024-04-20 19:58] LABS: Free T4 (Free Thyroxine) 0.72 ng/dL (0.70-1.48)
[2024-04-20 20:00] LABS: Bacteria/HPF 2+ HPF (None Seen)
[2024-04-20 20:03] LABS: Urine Culture Reflex Yes Yes
[2024-04-20 20:36] LABS: Lactic Acid 2.28 mmol/L (0.5-2.2)
[2024-04-20 20:50] LABS: Troponin I 0.067 ng/mL (< 0.028)
[2024-04-20] MEDS ORDERED: Pancrelipase DR 12,000 1 CAP PO SCH (21:00)
[2024-04-20] MEDS: Acetaminophen 325 MG TAB PO PRN (22:08)
[2024-04-20] MEDS: Sodium Chloride 0.9% 1,000 ML IV SCH (22:11)
[2024-04-20] MEDS: Vancomycin (BATCH) 1.75 GM in Premix 1 BAG IVPB SCH (22:23)
[2024-04-20] MEDS: Pantoprazole 40 MG VIAL IVP SCH (22:24)
[2024-04-20 22:27] VITALS: BMI 27.2
[2024-04-20] MEDS: Latanoprost 0.005% Ophth Soln 2.5 ml Bottle EA EYE SCH (22:52)
[2024-04-20] MEDS: metroNIDAZOLE 500 MG in Premix 1 BAG IVPB SCH (22:52)
[2024-04-20] MEDS: Acetaminophen 325 MG TAB PO SCH (23:21)
[2024-04-20] MEDS: D5 1/2 NS w/20 mEq KCL 1,000 ML IV SCH (23:48)
[2024-04-20] MEDS: Cefepime 2 GM in Sodium Chloride 0.9% 100 ML IVPB SCH (23:48)
[2024-04-21] MEDS: Vancomycin 1 GM in Sodium Chloride 0.9% 250 ML 250 ML IVPB SCH (00:26)
[2024-04-21 02:02] LABS: Troponin I 0.106 ng/mL (< 0.028)
[2024-04-21] MEDS: NOREPINEPHRINE 8 MG/250 ML-D5W 250 ML IVPB SCH (02:48)
[2024-04-21] MEDS: Levothyroxine Sodium 50 MCG TAB PO SCH (05:05)
[2024-04-21 05:39] LABS: Vancomycin, Random 18.2 ug/mL (See Comment)
[2024-04-21 05:43] LABS: ALT (SGPT) 11 U/L (8-55); AST (SGOT) 13 U/L (5-34); Albumin 1.8 g/dL (3.4-4.8); Alkaline Phosphatase 46 U/L (40-110); Anion Gap 10 mmol/L (10-20); BUN (Urea Nitrogen) 26 mg/dL (9.8-20.1); Bilirubin, Total 0.7 mg/dL (0.2-1.2); Calc. Creatinine Clearance 54 mL/min (70-130); Calcium 6.5 mg/dL (7.8-10.44); Carbon Dioxide 19 mmol/L (23-31); Chloride 106 mmol/L (98-107); Estimated GFR 54; Globulin 1.9 g/dL (2.4-3.5); Glucose 123 mg/dL (83-110); Potassium 3.3 mmol/L (3.5-5.1); Protein, Total 3.7 g/dL (5.8-8.1); Sodium 132 mmol/L (136-145)
[2024-04-21 05:48] LABS: Hematocrit 28.3 % (36.0-47.0); Hemoglobin 9.5 g/dL (12.0-16.0); Mean Corpuscular HGB CONC 33.6 g/dL (32.0-36.0); Mean Corpuscular Hemoglobin 28.4 pg (27.0-31.0); Mean Corpuscular Volume 84.5 fL (78.0-98.0); Mean Platelet Volume 10.7 fL (7.4-10.4); Platelet Count 21 10x3/uL (130-400); RBC Distribution Width 16.4 % (11.5-14.5); Red Blood Cell (RBC) Count 3.35 mill/uL (4.20-5.40)
[2024-04-21] MEDS: Albumin 25% 25 GM (100 mL) BOT IVPB SCH (05:59)
[2024-04-21] MEDS: CALCIUM GLUC 1 GM/NS 50 ML 1 GM in Premix 1 BAG IVPB SCH (06:20)
[2024-04-21 07:38] LABS: Band 7 % (5-11); Eosinophils 5 % (0-10); Large Platelets 5.4 % (0-5); Lymphocytes 49 % (21-51); Monocytes 12 % (0-10); Neutrophil 24 % (42-75); Nucleated RBC (Manual Ct) 7 % (0); Platelet Adequacy Comment Significant Decrease; RBC Morphology Within Normal Limits; Reactive Lymphocytes 3 % (0-10)
[2024-04-21] MEDS: Vancomycin (BATCH) 1.25 GM in Premix 1 BAG IVPB SCH (07:59)
[2024-04-21] MEDS ORDERED: Vancomycin (BATCH) 1.25 GM in Premix 1 BAG IVPB SCH ×2 (08:00→12:00)
[2024-04-21] MEDS ORDERED: Pantoprazole 40 MG VIAL IVP SCH (09:00)
[2024-04-21] MEDS ORDERED: Electrolyte Replacement Protocol FS PRN (09:15)
[2024-04-21] MEDS: Cefepime 2 GM in Sodium Chloride 0.9% 100 ML IVPB SCH ×2 (10:16→15:31)
[2024-04-21] MEDS: Potassium Chloride 40 MEQ in Premix 1 BAG IVPB SCH (10:16)
[2024-04-21 11:01] LABS: Magnesium 1.2 mg/dL (1.6-2.6)
[2024-04-21] MEDS: Magnesium Sulfate In Water 4 GM in Premix 1 BAG IVPB SCH (11:28)
[2024-04-21 13:53] LABS: Potassium 3.7 mmol/L (3.5-5.1)
[2024-04-21] MEDS ORDERED: Levothyroxine 150 MCG TAB PO SCH (21:00)
[2024-04-21] MEDS: Temazepam 15 MG CAP PO SCH (21:27)
[2024-04-22] MEDS: Melatonin 3 MG TAB PO SCH (01:13)
[2024-04-22 04:34] LABS: Vancomycin, Random 16.5 ug/mL (See Comment)
[2024-04-22 04:35] LABS: Magnesium 2.2 mg/dL (1.6-2.6)
[2024-04-22 07:03] LABS: Anion Gap 10 mmol/L (10-20); BUN (Urea Nitrogen) 16 mg/dL (9.8-20.1); Calc. Creatinine Clearance 65 mL/min (70-130); Carbon Dioxide 19 mmol/L (23-31); Chloride 110 mmol/L (98-107); Estimated GFR 67; Glucose 93 mg/dL (83-110); Hematocrit 23.2 % (36.0-47.0); Hemoglobin 7.9 g/dL (12.0-16.0); Mean Corpuscular HGB CONC 34.1 g/dL (32.0-36.0); Mean Corpuscular Hemoglobin 28.8 pg (27.0-31.0); Mean Corpuscular Volume 84.7 fL (78.0-98.0); Platelet Count 16 10x3/uL (130-400); Potassium 3.8 mmol/L (3.5-5.1); RBC Distribution Width 16.8 % (11.5-14.5); Red Blood Cell (RBC) Count 2.74 mill/uL (4.20-5.40); Sodium 135 mmol/L (136-145)
[2024-04-22 07:32] LABS: Band 4 % (5-11); Eosinophils 4 % (0-10); Large Platelets 3.8 % (0-5); Lymphocytes 32 % (21-51); Monocytes 13 % (0-10); Neutrophil 44 % (42-75); Nucleated RBC (Manual Ct) 3 % (0); Platelet Adequacy Comment Significant Decrease; Polychromasia SLIGHT = 2-3 cells HPF (0-2); Reactive Lymphocytes 2 % (0-10); Smudge Cells 6.7 %
[2024-04-22] MEDS: Loratadine 10 MG TAB PO SCH (08:09)
[2024-04-22] MEDS: Pregabalin 50 MG CAP PO SCH ×2 (11:09→20:25)
[2024-04-22] MEDS: Pregabalin 75 MG CAP PO SCH ×2 (11:09→20:26)
[2024-04-22] MEDS ORDERED: Loperamide HCl 2 MG CAP PO PRN (14:20)
[2024-04-22] MEDS: Cefepime 2 GM in Sodium Chloride 0.9% 100 ML IVPB SCH (20:23)
[2024-04-23 05:33] LABS: Vancomycin, Random 16.8 ug/mL (See Comment)
[2024-04-23 06:38] LABS: Hematocrit 23.6 % (36.0-47.0); Hemoglobin 7.7 g/dL (12.0-16.0); Mean Corpuscular HGB CONC 32.6 g/dL (32.0-36.0); Mean Corpuscular Hemoglobin 29.1 pg (27.0-31.0); Mean Corpuscular Volume 89.1 fL (78.0-98.0); Platelet Count 47 10x3/uL (130-400); RBC Distribution Width 17.2 % (11.5-14.5); Red Blood Cell (RBC) Count 2.65 mill/uL (4.20-5.40)
[2024-04-23 07:21] LABS: Band 7 % (5-11); Dohle Bodies SLIGHT; Large Platelets 3.9 % (0-5); Lymphocytes 16 % (21-51); Metamyelocyte 1 % (0-0); Microcytosis SLIGHT = 6-15 cells HPF (0-5); Monocytes 6 % (0-10); Neutrophil 69 % (42-75); Nucleated RBC (Manual Ct) 3 % (0); Ovalocytes SLIGHT = 2-5 cells HPF (0-1); Platelet Adequacy Comment Significant Decrease; Polychromasia SLIGHT = 2-3 cells HPF (0-2); Reactive Lymphocytes 2 % (0-10); Smudge Cells 3.9 %; Tear Drops SLIGHT = 2-5 cells HPF (0-1); Toxic Granulation MODERATE
[2024-04-23] MEDS: cefTRIAXone\\ROCEPHIN 2 GM in Sodium Chloride 0.9% 100 ML IVPB SCH (17:28)
[2024-04-23] MEDS ORDERED: cefTRIAXone Sodium 2,000 MG in Syringe 0 ML IVPB SCH (18:30)
[2024-04-24 06:00] LABS: Hematocrit 25.2 % (36.0-47.0); Hemoglobin 8.3 g/dL (12.0-16.0); Mean Corpuscular HGB CONC 32.9 g/dL (32.0-36.0); Mean Corpuscular Hemoglobin 28.9 pg (27.0-31.0); Mean Corpuscular Volume 87.8 fL (78.0-98.0); Mean Platelet Volume 10.8 fL (7.4-10.4); Platelet Count 46 10x3/uL (130-400); RBC Distribution Width 17.2 % (11.5-14.5); Red Blood Cell (RBC) Count 2.87 mill/uL (4.20-5.40)
[2024-04-24 06:18] LABS: ALT (SGPT) 10 U/L (8-55); AST (SGOT) 11 U/L (5-34); Albumin 2.1 g/dL (3.4-4.8); Alkaline Phosphatase 51 U/L (40-110); Anion Gap 8 mmol/L (10-20); BUN (Urea Nitrogen) 7 mg/dL (9.8-20.1); Bilirubin, Total 0.4 mg/dL (0.2-1.2); Calc. Creatinine Clearance 72 mL/min (70-130); Calcium 7.2 mg/dL (7.8-10.44); Carbon Dioxide 21 mmol/L (23-31); Chloride 110 mmol/L (98-107); Estimated GFR 70; Glucose 92 mg/dL (83-110); Potassium 3.4 mmol/L (3.5-5.1); Protein, Total 4.1 g/dL (5.8-8.1); Sodium 136 mmol/L (136-145)
[2024-04-24 06:22] LABS: Anisocytosis SLIGHT = 6-15 cells HPF (0-5); Band 11 % (5-11); Dohle Bodies SLIGHT; Eosinophils 1 % (0-10); Lymphocytes 6 % (21-51); Metamyelocyte 2 % (0-0); Microcytosis SLIGHT = 6-15 cells HPF (0-5); Monocytes 5 % (0-10); Myelocyte 1 % (0-0); Neutrophil 72 % (42-75); Nucleated RBC (Manual Ct) 1 % (0); Ovalocytes SLIGHT = 2-5 cells HPF (0-1); Platelet Adequacy Comment Significant Decrease; Polychromasia SLIGHT = 2-3 cells HPF (0-2); Promyelocytes 1 % (0-0); Tear Drops SLIGHT = 2-5 cells HPF (0-1); Toxic Granulation MODERATE
[2024-04-24] MEDS: Potassium Chloride 20 MEQ TAB PO SCH (09:29)
[2024-04-24 12:50] VITALS: BP 108/78; TEMP 99
== END 2024-04-24 13:25 | disposition home health service (06) | DRG 871 ==
LOC: ERS 12:53 → CCU 17:20 → MSONC 04-22 14:43
PROVIDERS: ADMIT Internal Medicine; ATTEND Internal Medicine
PROC: 6A550Z2 Pheresis of Platelets, Single (ICD-10-PCS; principal; 2024-04-22)
DX: A41.9 Sepsis, unspecified organism (principal); D61.810 Antineoplastic chemotherapy induced pancytopenia; R65.21 Severe sepsis with septic shock; G93.41 Metabolic encephalopathy; C21.0 Malignant neoplasm of anus, unspecified; A04.72 Enterocolitis due to Clostridium difficile, not specified as recurrent; N17.9 Acute kidney failure, unspecified; I74.10 Embolism and thrombosis of unspecified parts of aorta; C78.00 Secondary malignant neoplasm of unspecified lung; N30.80 Other cystitis without hematuria; T45.1X5A Adverse effect of antineoplastic and immunosuppressive drugs, initial encounter; Z88.5 Allergy status to narcotic agent; E03.9 Hypothyroidism, unspecified; I10 Essential (primary) hypertension; F41.9 Anxiety disorder, unspecified; K21.9 Gastro-esophageal reflux disease without esophagitis; G89.29 Other chronic pain; I48.91 Unspecified atrial fibrillation; Z90.710 Acquired absence of both cervix and uterus; Z88.8 Allergy status to other drugs, medicaments and biological substances; E86.0 Dehydration
CPT/HCPCS: 36415; 36416; 36430; 36556; 51702; 70450; 71045; 71275; 74177; 80048; 80053; 80202; 81001; 82274; 82533; 82565; 83605; 83690; 83735; 83880; 84145; 84439; 84443; 84481; 84484; 85025; 86850; 86900; 86901; 87040; 87077; 87086; 87186; 87324; 87449; 87507; 93005; 93306; 93970; 96374; 96375; J0613; J0692; J0696; J1642; J2405; J2470; J2543; J3370; J3475; J3480; J7030; P9035; P9047; Q9967

== ENCOUNTER 2024-06-15 09:30 | Outpatient (CLI) | payer MEDICARE | END 2024-06-15 09:31 | disposition home or self-care (01) | LOC: PET 09:30 | PROVIDERS: ATTEND Internal Medicine Hematology & Oncology | DX: C21.1 Malignant neoplasm of anal canal (principal); C78.00 Secondary malignant neoplasm of unspecified lung; R59.0 Localized enlarged lymph nodes; K22.89 Other specified disease of esophagus; Z98.890 Other specified postprocedural states | CPT/HCPCS: 78815; A9552 ==

== ENCOUNTER 2024-08-22 11:15 | Outpatient (CLI) | payer MEDICARE ==
[~2024-08-22 11:15] MED LIST changes: +Iopamidol 370 76% 100 ML VIAL ONE; -Iopamidol-370 76% 500 ML MDV (1 ML CHARGE) ONE
== END 2024-08-22 11:16 | disposition home or self-care (01) ==
LOC: BICCT 11:15
PROVIDERS: ATTEND Internal Medicine Hematology & Oncology
DX: C21.1 Malignant neoplasm of anal canal (principal); J02.9 Acute pharyngitis, unspecified; M81.8 Other osteoporosis without current pathological fracture; D50.8 Other iron deficiency anemias; R30.0 Dysuria; M81.0 Age-related osteoporosis without current pathological fracture; E83.52 Hypercalcemia; D70.8 Other neutropenia; J98.11 Atelectasis; R59.0 Localized enlarged lymph nodes; J98.09 Other diseases of bronchus, not elsewhere classified; R91.8 Other nonspecific abnormal finding of lung field
CPT/HCPCS: 70491; 71260; 74160

== ENCOUNTER 2025-02-23 09:51 | Outpatient (CLI) | payer MEDICARE ==
[2025-02-23 10:06] LABS: Estimated GFR - POC 88.0
== END 2025-02-23 09:52 | disposition home or self-care (01) ==
LOC: NM 09:51
PROVIDERS: ATTEND Internal Medicine Hematology & Oncology
DX: C21.1 Malignant neoplasm of anal canal (principal); M81.8 Other osteoporosis without current pathological fracture; D50.8 Other iron deficiency anemias; M81.0 Age-related osteoporosis without current pathological fracture; E83.52 Hypercalcemia; D70.8 Other neutropenia; R30.0 Dysuria; C79.51 Secondary malignant neoplasm of bone; M47.816 Spondylosis without myelopathy or radiculopathy, lumbar region; K62.89 Other specified diseases of anus and rectum; R60.0 Localized edema; R93.2 Abnormal findings on diagnostic imaging of liver and biliary tract; J90 Pleural effusion, not elsewhere classified
CPT/HCPCS: 36415; 71260; 74177; 78306; 82565 ×2; A9503

== ENCOUNTER 2025-02-24 10:31 | Day surgery (SDC) | payer MEDICARE ==
[2025-02-23 11:29] VITALS: BMI 23.3
[2025-02-24] MEDS ORDERED: PROPOFOL 20 ML ONE ×2 (11:45→12:07)
[2025-02-24] MEDS ORDERED: PHENYLEPHRINE-NS 100 MCG/ML 10 ML SYRINGE ONE (13:07)
== END 2025-02-24 14:55 | disposition home or self-care (01) ==
LOC: SDC 10:31
PROVIDERS: ATTEND Internal Medicine Gastroenterology
PROC: 0DB38ZX Excision of Lower Esophagus, Via Natural or Artificial Opening Endoscopic, Diagnostic (ICD-10-PCS; principal; 2025-02-24)
PROC: 0DB68ZX Excision of Stomach, Via Natural or Artificial Opening Endoscopic, Diagnostic (ICD-10-PCS; 2025-02-24)
PROC: 0D717ZZ Dilation of Upper Esophagus, Via Natural or Artificial Opening (ICD-10-PCS; 2025-02-24)
DX: C16.2 Malignant neoplasm of body of stomach (principal); C21.0 Malignant neoplasm of anus, unspecified; K21.00 Gastro-esophageal reflux disease with esophagitis, without bleeding; I10 Essential (primary) hypertension; G82.20 Paraplegia, unspecified; Z98.49 Cataract extraction status, unspecified eye; Z96.1 Presence of intraocular lens; Z88.5 Allergy status to narcotic agent; Z88.8 Allergy status to other drugs, medicaments and biological substances; Z79.899 Other long term (current) drug therapy
CPT/HCPCS: 43239; 43450; 82962; J2704; 36416; 88305; 88341; 88342; 88360

== ENCOUNTER 2025-04-18 09:53 | Outpatient (CLI) | payer MEDICARE ==
[2025-04-18] MEDS ORDERED: Iopamidol 370 76% 100 ML VIAL ONE (11:03)
== END 2025-04-18 09:54 | disposition home or self-care (01) ==
LOC: CT 09:53
PROVIDERS: ATTEND Internal Medicine Hematology & Oncology
DX: D70.8 Other neutropenia (principal); C21.1 Malignant neoplasm of anal canal; D50.8 Other iron deficiency anemias; R30.0 Dysuria; M81.0 Age-related osteoporosis without current pathological fracture; E83.52 Hypercalcemia; R91.8 Other nonspecific abnormal finding of lung field; C78.7 Secondary malignant neoplasm of liver and intrahepatic bile duct; R19.00 Intra-abdominal and pelvic swelling, mass and lump, unspecified site; N32.9 Bladder disorder, unspecified; J90 Pleural effusion, not elsewhere classified
CPT/HCPCS: 71260; 74177; Q9967

== ENCOUNTER 2025-06-01 09:54 | Outpatient (CLI) | payer MEDICARE | END 2025-06-01 09:55 | disposition home or self-care (01) | LOC: CT 09:54 | PROVIDERS: ATTEND Internal Medicine Hematology & Oncology | DX: C21.1 Malignant neoplasm of anal canal (principal); M81.8 Other osteoporosis without current pathological fracture; D50.8 Other iron deficiency anemias; R30.0 Dysuria; E83.52 Hypercalcemia; D70.8 Other neutropenia; C78.7 Secondary malignant neoplasm of liver and intrahepatic bile duct; K76.9 Liver disease, unspecified; R91.8 Other nonspecific abnormal finding of lung field; K31.89 Other diseases of stomach and duodenum; J90 Pleural effusion, not elsewhere classified; J98.4 Other disorders of lung; N32.9 Bladder disorder, unspecified | CPT/HCPCS: 71260; 74177 ==